=== PATIENT | female | born 1945 | race Caucasian/White ===

== ENCOUNTER 2017-03-22 16:06 | Emergency (ER) | payer OTHER, BC ==
[~2017-03-22] VITALS: Ht 160 cm; Wt 87.1 kg
[2017-03-22 16:16] VITALS: BP 184/87
--- NOTE | 2017-03-22 16:26 | NUR ---
Patient to bed 11.
--- NOTE | 2017-03-22 16:35 | NUR ---
71 F BIB SELF C/O BILATERAL ANKLE SWELLING WITH 9/10 CONSTANT "PRESSURE" BL ANKLE PAIN X 4 DAYS; SKIN INTACT TO BL LEGS; CMS INTACT TO BL LEGS; PT DENIES ANY NUMBNESS OR TINGLING TO EXTREMITIES; SKIN IS PINK/WARM/DRY; AOX4 WITH EVEN AND STEADY GAIT; RR ARE EVEN AND UNLABORED; PT DENIES ANY FEVER, CP, OR SOB AT THIS TIME; VSS; PATIENT POSITIONED FOR COMFORT; HOB ELEVATED; BED DOWN. ER MD MADE AWARE OF PT STATUS. ALL NEEDS MET AT [facility] TIME.
--- NOTE | 2017-03-22 16:53 | NUR ---
Dr. Carter evaluating patient at bedside.
[2017-03-22] MEDS ORDERED: KETOROLAC 60 MG/2 ML VIAL IM ONE (16:55)
--- NOTE | 2017-03-22 17:11 | NUR ---
[facility] [facility] CUST[employer]ER SERVICE ATTENDANT, TAWANDA HOPE, BY BEDSIDE FOLLOWING UP WITH PATIENT. [phone]
--- NOTE | 2017-03-22 17:28 | NUR ---
Meal tray by bedside. Pt with no complaints. VSS. NAD. RR are even and unlabored. Will continue to monitor.
--- NOTE | 2017-03-22 18:39 | NUR ---
Patient denies any cp, dizziness, blurry vision, or sob; pt is aox4; rr are even and unlabored; vss; nad.
--- NOTE | 2017-03-22 18:40 | NUR ---
Homeless/community resource packet given to patient.
--- NOTE | 2017-03-22 18:40 | NUR ---
Patient discharged with v/s stable. Written and verbal after care instructions given and explained. Patient alert, oriented and verbalized understanding of instructions. Ambulatory with steady gait. All questions addressed prior to discharge. ID band removed. Patient advised to follow up with PMD. Rx of Cipro and Motrin given. Patient educated on indication of medication including possible reaction and side effects. Opportunity to ask questions provided and answered.
[2017-03-22 18:41] VITALS: BP 154/71
== END 2017-03-22 18:40 | disposition home or self-care (01) ==
LOC: MED 16:06
DX: R60.9 Edema, unspecified (principal); N39.0 Urinary tract infection, site not specified; I10 Essential (primary) hypertension; Z90.49 Acquired absence of other specified parts of digestive tract
CPT/HCPCS: 81002; 96372; 99283; J1885

== ENCOUNTER 2017-04-07 01:45 | Emergency (ER) | payer OTHER, BC ==
[~2017-04-07] VITALS: Ht 160 cm; Wt 91.3 kg
[2017-04-07 01:51] VITALS: BP 179/89
--- NOTE | 2017-04-07 02:05 | NUR ---
Pt taken to bed 3 w/c assisted.
--- NOTE | 2017-04-07 02:10 | NUR ---
71/F PRESENTS TO ER C/O BL LOWER LIMB SWELLING AND PAIN X3 WEEKS. PMH HTN, ARTHRITIS, GALL BLADDER SURGERY, PARTIAL HYSTERECTOMY. PT STATES SWELLING STARTED 3 WEEKS AGO AND HAS GOTTEN WORSE IN THE PAST WEEK, ACCOMPANIED BY PAIN, PT STATES PAIN IS DULL CONTINUOUS IN BL FEET AND ANKLES AND RADIATING TO BELOW THE KNEES AT 9/10. BL LOWER LEGS ARE SWOLLEN AND WARM TO THE TOUCH, CMS INTACT, PT DENIES CP, SOB, N/V/D, FEVER. PT STATES SHE HAS LIVED IN HER CAR THE LAST 3 WEEKS AND IS UNABLE TO ELEVATE HER LEGS. PT IN BED, ER MD NOTIFIED OF PT STATUS, COMFORT NEEDS MET AT THIS TIME.
--- NOTE | 2017-04-07 02:10 | NUR ---
Dr. Fu evaluating patient at bedside.
[2017-04-07] MEDS ORDERED: FUROSEMIDE 40 MG/4 ML VIAL IVP SCH (02:15)
--- NOTE | 2017-04-07 02:17 | NUR ---
X-Ray at bedside.
[2017-04-07] MEDS ORDERED: KETOROLAC 30 MG/ML VIAL IVP ONE (02:40)
[2017-04-07 02:41] LABS: BASOPHILS # (AUTO) 0.2 K/uL (0.00-0.22); BASOPHILS % (AUTO) 2.1 % (0.0-2.0); EOSINOPHILS # (AUTO) 0.2 K/uL (0-0.4); EOSINOPHILS % (AUTO) 2.2 % (0.0-4.0); HEMOGLOBIN 13.2 g/dL (12.0-16.0); LYMPHOCYTES % (AUTO) 21.2 % (20.5-51.1); MEAN CORPUSCULAR HEMOGLOBIN 30 pg (27-31); MEAN CORPUSCULAR HGB CONC 33 g/dL (33-37); MEAN CORPUSCULAR VOLUME 91 fL (80-94); MONOCYTES # (AUTO) 0.6 K/uL (0.8-1.0); MONOCYTES % (AUTO) 6.2 % (1.7-9.3); NEUTROPHILS # (AUTO) 6.3 K/uL (1.8-7.7); NEUTROPHILS % (AUTO) 68.3 % (42.2-75.2); PLATELET COUNT (AUTO) 266 K/uL (140-450); RED BLOOD CELL COUNT(AUTO) 4.38 MIL/uL (4.20-5.40); RED CELL DISTRIBUTION WIDTH 12.9 % (11.6-13.7); WHITE BLOOD COUNT (AUTO) 9.3 K/uL (4.8-10.8)
[2017-04-07 02:52] LABS: ANION GAP 9.3 (8-16); CARBON DIOXIDE 31.8 mmol/L (21-32); CHLORIDE 105 mmol/L (98-107); CREATININE 0.9 mg/dL (0.6-1.3); GLUCOSE 101 mg/dL (74-106); POTASSIUM 4.1 mmol/L (3.5-5.1); SODIUM SERUM 142 mmol/L (136-145); UREA NITROGEN, BLOOD 22 mg/dL (7-18)
[2017-04-07 02:58] LABS: ALBUMIN 3.2 g/dL (3.4-5.0); ASPARTATE AMINOTRANSFERASE 11 U/L (15-37); TOTAL BILIRUBIN 0.3 mg/dL (0.0-1.0)
[2017-04-07 03:06] LABS: CREATINE KINASE MB 0.4 ng/mL (0-3.6)
--- NOTE | 2017-04-07 03:46 | NUR ---
Patient discharged with v/s stable. Written and verbal after care instructions given and explained. Patient alert, oriented and verbalized understanding of instructions. Ambulatory with steady gait. All questions addressed prior to discharge. ID band removed. Patient advised to follow up with PMD. Rx of LASIX 20MG, ACETAMINOPHEN 500MG given. Patient educated on indication of medication including possible reaction and side effects. Opportunity to ask questions provided and answered.
[2017-04-07 03:47] VITALS: BP 131/65
== END 2017-04-07 03:46 | disposition home or self-care (01) ==
LOC: MED 01:45
DX: R60.0 Localized edema (principal); M79.604 Pain in right leg; M79.605 Pain in left leg; I10 Essential (primary) hypertension; Z90.89 Acquired absence of other organs
CPT/HCPCS: 36415; 71010; 80053; 82550; 82553; 83690; 83880; 84484; 85025; 93005; 96374; 96375; 99285; J1885; J1940; Q0092